=== PATIENT | male | born 1990 | race Caucasian/White ===

== ENCOUNTER 2019-09-05 13:26 | Emergency (ER) | payer BC ==
[~2019-09-05] VITALS: Ht 170.2 cm; Wt 70.5 kg
[2019-09-05 14:01] VITALS: BP 122/65; PULSE 80; TEMP 98.5
== END 2019-09-05 15:16 | disposition left against medical advice (07) ==
LOC: COL.ER 13:26
DX: R50.9 Fever, unspecified (principal)